=== PATIENT | male | born 1955 | race Caucasian/White ===

== ENCOUNTER 2018-09-01 05:40 | Day surgery (SDC) | payer BC ==
[2018-08-31 09:57] LABS: BASOPHILS % (AUTO) 0.5 % (0-1); EOSINOPHILS # (AUTO) 0.2 X10'3 (0-0.9); EOSINOPHILS % (AUTO) 4.4 % (0-6); HEMATOCRIT 44.7 % (42.0-52.0); HEMOGLOBIN 15.1 g/dl (14.0-17.9); LYMPHOCYTES # (AUTO) 1.5 X10'3 (1.1-4.8); LYMPHOCYTES % (AUTO) 28.3 % (21-51); MEAN CORPUSCULAR HEMOGLOBIN 32.6 PG (27.0-31.0); MEAN CORPUSCULAR HGB CONC 33.9 % (33.0-36.5); MEAN CORPUSCULAR VOLUME 96.1 FL (78-98); MEAN PLATELET VOLUME 7.7 FL (7.4-10.4); MONOCYTES # (AUTO) 0.3 X10'3 (0-0.9); MONOCYTES % (AUTO) 6.4 % (2-12); NEUTROPHILS # (AUTO) 3.2 X10'3 (1.8-7.7); NEUTROPHILS % (AUTO) 60.4 % (42-75); PLATELET COUNT 178 X10'3 (140-440); RED BLOOD COUNT 4.65 X10'6 (4.70-6.10); RED CELL DISTRIBUTION WIDTH 12.6 % (11.5-14.5); WHITE BLOOD COUNT 5.3 X10'3 (4.5-11.0)
[2018-08-31 10:16] LABS: ALBUMIN 2.6 G/DL (3.4-5.0); ANION GAP 9 (8-16); BLOOD UREA NITROGEN 15 MG/DL (7-18); BUN/CREATININE RATIO 13.2 (5.4-32.0); CALCIUM 8.6 MG/DL (8.5-10.1); CHLORIDE 105 MMOL/L (99-107); CREATININE 1.14 MG/DL (0.60-1.10); GLUCOSE 110 MG/DL (70-104); POTASSIUM 3.9 MMOL/L (3.5-5.1); SODIUM 140 MMOL/L (135-145); TOTAL CARBON DIOXIDE 26.3 MMOL/L (24-32); eGFR 65 ML/MIN
[2018-08-31 10:19] LABS: PARTIAL THROMBOPLASTIN TIME 28 SECONDS (22-32); PROTHROMBIN TIME 10.1 SECONDS (9.0-12.0)
[2018-09-01] VITALS (12 sets, daily range): BP systolic 91–126; BP diastolic 55–84
[~2018-09-01] VITALS: Ht 182.9 cm; Wt 82.3 kg
[2018-09-01] MEDS ORDERED: CILO100T PO (06:05)
[2018-09-01] MEDS ORDERED: ATOR80TA PO (06:05)
[2018-09-01] MEDS ORDERED: ASPI81TA52 PO (06:05)
[2018-09-01] MEDS ORDERED: ALLO100T PO (06:05)
[2018-09-01] MEDS ORDERED: LORazepam 0.5 MG tablet PO PRN (06:20)
[2018-09-01] MEDS ORDERED: normal saline 1000ml 1,000 ML IV SCH (06:20)
[2018-09-01] MEDS ORDERED: diphenhydrAMINE 25mg capsule PO PRN (06:20)
[2018-09-01] MEDS ORDERED: midazolam 2 mg/2 ml injection ONE (07:41)
[2018-09-01] MEDS ORDERED: heparin 1,000unit/ml 10ml vial 10 ML ONE (07:41)
[2018-09-01] MEDS ORDERED: fentaNYL/PF 50MCG/1 ML 2ML syringe ONE (07:41)
[2018-09-01] MEDS ORDERED: iohexol 350MG/ML 100ml bottle IV ONE (07:41)
[2018-09-01] MEDS ORDERED: LIDOcaine 1% 30ml preserv. free vial ONE (07:41)
[2018-09-01] MEDS ORDERED: iohexol 350 MG/ML 50ML vial IV ONE ×2 (07:41→08:22)
[2018-09-01] MEDS ORDERED: nitroGLYCERIN-Tridil 50MG/D5W 250 ML IV ONE (07:41)
== END 2018-09-01 14:50 | disposition home or self-care (01) ==
LOC: SSTAY O 05:40
PROVIDERS: ATTEND Internal Medicine Cardiovascular Disease
DX: I25.10 Atherosclerotic heart disease of native coronary artery without angina pectoris (principal); E78.5 Hyperlipidemia, unspecified; I73.89 Other specified peripheral vascular diseases; Z86.79 Personal history of other diseases of the circulatory system; Z79.82 Long term (current) use of aspirin; Z72.89 Other problems related to lifestyle; Z79.899 Other long term (current) drug therapy; Z98.890 Other specified postprocedural states; Z82.49 Family history of ischemic heart disease and other diseases of the circulatory system
CPT/HCPCS: 36415; 75630; 80048; 85025; 85610; 85730; 93005; 93458; 99152; 99153; A6257; C1760; J1644; J2250; J3010; J3490; J7030; Q0163; Q9967; A4620; C1769

== ENCOUNTER 2020-07-25 08:35 | Day surgery (SDC) | payer BC ==
[2020-07-18 14:58] LABS: ALBUMIN 3.9 G/DL (3.4-5.0); ALBUMIN/GLOBULIN RATIO 1.1 (1.1-1.5); ALKALINE PHOSPHATASE 99 IU/L (46-116); BLOOD UREA NITROGEN 15 MG/DL (7-18); BUN/CREATININE RATIO 13.2 (5.4-32.0); CALCIUM 9.6 MG/DL (8.5-10.1); CHLORIDE 103 MMOL/L (99-107); CREATININE 1.14 MG/DL (0.60-1.10); PRE OP ALT 37 U/L (30-65); PRE OP ANION GAP 11 (8-16); PRE OP AST 23 U/L (10-37); PRE OP BILIRUB, TOTAL 0.7 MG/DL (0.0-1.0); PRE OP GLUCOSE 122 MG/DL (70-104); PRE OP POTASSIUM 3.8 MMOL/L (3.4-5.1); PRE OP SODIUM 143 MMOL/L (135-145); TOTAL CARBON DIOXIDE 28.9 MMOL/L (24-32); TOTAL PROTEIN 7.4 G/DL (6.4-8.2); eGFR 65 ML/MIN
[2020-07-18 15:01] LABS: BASOPHILS % (AUTO) 0.7 % (0-1); EOSINOPHILS # (AUTO) 0.1 X10'3 (0-0.9); EOSINOPHILS % (AUTO) 1.8 % (0-6); LYMPHOCYTES # (AUTO) 1.6 X10'3 (1.1-4.8); LYMPHOCYTES % (AUTO) 27.4 % (21-51); MEAN CORPUSCULAR HEMOGLOBIN 33.3 PG (27.0-31.0); MEAN CORPUSCULAR HGB CONC 34.4 g/dL (33.0-36.5); MEAN CORPUSCULAR VOLUME 96.8 FL (78-98); MEAN PLATELET VOLUME 7.5 FL (7.4-10.4); MONOCYTES # (AUTO) 0.5 X10'3 (0-0.9); NEUTROPHILS # (AUTO) 3.7 X10'3 (1.8-7.7); NEUTROPHILS % (AUTO) 62.1 % (42-75); PRE OP HEMATOCRIT 44.6 % (42.0-52.0); PRE OP HEMOGLOBIN 15.3 g/dL (14.0-17.9); PRE OP PLATELET COUNT 203 X10'3 (140-440); RED BLOOD COUNT 4.61 X10'6 (4.70-6.10); RED CELL DISTRIBUTION WIDTH 13.1 % (11.5-14.5)
[~2020-07-25] VITALS: Ht 182.9 cm; Wt 81.6 kg
[2020-07-25] VITALS (10 sets, daily range): BP systolic 116–146; BP diastolic 62–94
[~2020-07-25 08:35] MED LIST: ALLO100T PO; ATOR80TA PO; BUPIVAcaine/PF 2.5 mg/ml (0.25%) 30ml vial ONE; CILO100T PO; LIDOcaine 1% 30ml preserv. free vial ONE; cefazolin/dext.iso 2gm/50ml 50 ML IV ONE; famotidine 20mg tablet PO ONE; ringers solution, lacted 1,000 ML IV SCH
[2020-07-25] MEDS ORDERED: midazolam 2 mg/2 ml injection ONE (10:37)
[2020-07-25] MEDS ORDERED: fentaNYL/PF 50MCG/1 ML 2ML syringe ONE (10:37)
[2020-07-25] MEDS ORDERED: propofol inj 20 ML IV ONE (10:37)
[2020-07-25] MEDS ORDERED: rocuronium 10mg/ml inj IV ONE (10:37)
[2020-07-25] MEDS ORDERED: ondansetron/PF 4mg/2ml inj ONE ×2 (11:01→11:35)
[2020-07-25] MEDS ORDERED: dexamethasone sod phosphate 4mg/ml inj. ONE (11:01)
[2020-07-25] MEDS ORDERED: morphine 4 MG/ML inj SYRINge IV PRN (11:10)
[2020-07-25] MEDS ORDERED: proCHLORperazine 10 MG/2 ml inj IV PRN (11:10)
[2020-07-25] MEDS ORDERED: ringers solution, lacted 1,000 ML IV SCH (11:10)
[2020-07-25] MEDS ORDERED: ondansetron/PF 4mg/2ml inj IV PRN (11:10)
[2020-07-25] MEDS ORDERED: morphine 2 MG/ML inj. syringe IV PRN (11:10)
[2020-07-25] MEDS ORDERED: meperidine/PF 25mg/ml syringe IV PRN ×3 (11:10)
[2020-07-25] MEDS ORDERED: sugammadex 200mg/2ml injection IV ONE (11:38)
--- NOTE | 2020-07-25 11:51 | NUR ---
ARRIVED IN PACU VIA GURNEY WITH O2 INPLACE. VS STABLE. REPORT RECEIVED. PT RESTLESS BUT NO C/O PAIN
[2020-07-25] MEDS ORDERED: HYDROcodone/acetaminophen 5mg/325mg tablet PO PRN ×2 (12:00)
--- NOTE | 2020-07-25 12:51 | NUR ---
PAIN IMPROVING AFTER PAIN MEDS
--- NOTE | 2020-07-25 13:20 | NUR ---
UP. STEADY ON FEET. DRESSED WITH LITTLE ASSISTANCE. AMBULATED TO BR
--- NOTE | 2020-07-25 13:31 | NUR ---
TO CAR VIA W/C WITHOUT INCIDENT
== END 2020-07-25 13:31 | disposition home or self-care (01) ==
LOC: PAS 08:35 → MERGE 10:45 → PAS 13:31
PROVIDERS: ATTEND Surgery
DX: K40.90 Unilateral inguinal hernia, without obstruction or gangrene, not specified as recurrent (principal); Z20.828 Contact with and (suspected) exposure to other viral communicable diseases; E78.5 Hyperlipidemia, unspecified; Z79.899 Other long term (current) drug therapy; Z82.49 Family history of ischemic heart disease and other diseases of the circulatory system; Z81.8 Family history of other mental and behavioral disorders
CPT/HCPCS: 36415; 49650; 80053; 82948; 85025; 87635; C1781; C9399; J1100; J2001; J2250; J2405; J2704; J3010; J3490; J7120; S2900; A4215; A4618